=== PATIENT | female | born 1960 | race Caucasian/White ===

== ENCOUNTER → 2018-05-19 | Outpatient (REF) | END | disposition home or self-care (01) | DRG 951 | LOC: LAB 07:15 | DX: Z13.228 Encounter for screening for other metabolic disorders (principal); R53.81 Other malaise ==

== ENCOUNTER 2021-06-16 19:43 | Emergency (ER) | payer BC ==
[~2021-06-16] VITALS: Ht 152.4 cm; Wt 80.0 kg
[~2021-06-16 19:43] MED LIST: GLIPIZIDE5 MG PO; HYDROCHLOROT12.5 MG PO; LORATADINE10 M1 PO; LOSARTAN POTASS25 MG PO; LOSARTAN/HCT1 TA2 PO; METFORMIN500 MG PO; TOPIRAMATE50 MG PO; VITAMIN D350000 UNIT PO
[2021-06-16] MEDS ORDERED: KENALOG15 GM/TUBE EX (20:10)
[2021-06-16] MEDS ORDERED: KEFLEX500 MG PO (20:10)
[2021-06-16 20:26] VITALS: BP 172/68
== END 2021-06-16 20:34 | disposition home or self-care (01) | DRG 918 ==
LOC: ED 19:43
DX: T63.431A Toxic effect of venom of caterpillars, accidental (unintentional), initial encounter (principal); L25.8 Unspecified contact dermatitis due to other agents; I10 Essential (primary) hypertension; E11.9 Type 2 diabetes mellitus without complications; Z79.84 Long term (current) use of oral hypoglycemic drugs

== ENCOUNTER 2022-04-08 08:41 | Emergency (ER) | payer OTHER, BC ==
[~2022-04-08] VITALS: Ht 152.4 cm; Wt 95.2 kg
[~2022-04-08 08:41] MED LIST changes: +KEFLEX500 MG PO; +KENALOG15 GM/TUBE EX
[2022-04-08 11:56] VITALS: BP 185/67
== END 2022-04-08 12:02 | disposition home or self-care (01) | DRG 605 ==
LOC: ED 08:41
DX: S20.01XA Contusion of right breast, initial encounter (principal); I10 Essential (primary) hypertension; E11.9 Type 2 diabetes mellitus without complications; W22.8XXA Striking against or struck by other objects, initial encounter; Y92.89 Other specified places as the place of occurrence of the external cause; Z79.84 Long term (current) use of oral hypoglycemic drugs